=== PATIENT | female | born 2000 | race Caucasian/White ===

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

== ENCOUNTER 2020-12-24 11:49 | Outpatient (CLI) | payer OTHER ==
[2020-12-24 15:58] LABS: THYROID STIMULATING HORMONE 2.71 uIU/mL (0.34-5.60)
[2020-12-24 16:00] LABS: FREE T4 (FREE THYROXINE) 0.66 ng/dL (0.58-1.64)
== END 2020-12-24 11:50 | disposition home or self-care (01) ==
LOC: LAB.S 11:49
PROVIDERS: ATTEND Nurse Practitioner Family
DX: R63.5 Abnormal weight gain (principal); Z13.228 Encounter for screening for other metabolic disorders
CPT/HCPCS: 36415; 80053; 80061; 82306; 82607; 83036; 83540; 83721; 84439; 84443; 84466; 85025

== ENCOUNTER 2021-05-24 10:42 | Emergency (ER) | payer OTHER ==
[2021-05-24] MEDS ORDERED: LORazepam 1 MG TABLET PO STA (13:23)
--- NOTE | 2021-05-24 13:39 | ED Physician Documentation ---
History of Present Illness - Stated complaint Stated Complaint: L LEG PAIN - Chief complaint Chief Complaint: Ext Problem - History obtained from History obtained from: Patient, Family - History of Present Illness Timing: Today Pain level max: 0 Pain level now: 0 - Additonal information Additional information: 20 year old female with Easy bruising and gums bleeding after starting Namenda about 3 weeks ago. She stopped taking the medication 3 days ago. Nothing makes it better or worse. No fevers. No chills. No headache. No trauma. Mother states that she is autistic. Patient is afraid of blood draws. Review of Systems Constitutional: denies: Fever, Chills Respiratory: denies: Cough GI: denies: Vomiting, Diarrhea Skin: denies: Rash Musculoskeletal: denies: Neck pain, Back pain Neurologic: denies: Headache PD PAST MEDICAL HISTORY - Past Medical History Past Medical History: No Psych: Other Other Past Medical History: autism - Present Medications Home Medications: Ambulatory Orders Medication Instructions Recorded Confirmed Cariprazine HCl [Vraylar] 4.5 mg PO DAILY 05/24/21 05/24/21 Dextroamphetamine/Amphetamine 10 mg PO DAILY 05/24/21 05/24/21 [Adderall 10 mg Tablet] Guanfacine HCl [Intuniv] 1 mg PO BID 05/24/21 05/24/21 Memantine HCl [Namenda] 5 mg PO BID 05/24/21 05/24/21 Metformin HCl [Metformin ER 500 mg PO TIDWM 05/24/21 05/24/21 Gastric] Phentermine HCl 15 mg PO DAILY 05/24/21 05/24/21 clonazePAM [KlonoPIN] 0.5 mg PO BID PRN 05/24/21 05/24/21 - Allergies Allergies/Adverse Reactions: Allergies Allergy/AdvReac Type Severity Reaction Status Date / Time No Known Drug Allergies Allergy Verified 05/24/21 11:03 - Social History Does the pt smoke?: No Smoking Status: Never smoker - POLST Patient has POLST: No PD ED PE NORMAL - Vitals Vital signs reviewed: Yes - General General: Alert and oriented X 3, No acute distress, Well developed/nourished - HEENT HEENT: Moist mucous membranes, Pharynx benign - Neck Neck: Supple, no meningeal sign - Cardiac Cardiac: RRR, Strong equal pulses - Respiratory Respiratory: No respiratory distress, Clear bilaterally - Abdomen Abdomen: Soft, Non tender, Non distended - Derm Derm: Other (Mild bruising to the bilateral calves, posterior aspect. No swelling.) - Extremities Extremities: Normal ROM s pain - Neuro Neuro: Alert and oriented X 3 Results - Vitals Vitals: Vital Signs - 24 hr 05/24/21 05/24/21 10:54 15:03 Temperature 36.5 C Heart Rate 112 H 122 H Respiratory 16 16 Rate Blood Pressure 120/84 H 127/74 O2 Saturation 95 100 Oxygen O2 Source Room air PD MEDICAL DECISION MAKING - ED course Complexity details: re-evaluated patient, considered differential, d/w patient, d/w family, d/w ada accommodation consultant ED course: Patient would not allow us to draw her blood. We did attempt to give the patient Ativan to calm her but this did not help. Do not feel that it is safe to sedate the patient for a blood draw. This likely is related to the Namenda. They stopped this medication 2 to 3 days ago, would expect her symptoms to begin to improve. If she worsens, recommend that they return for further care. Mother is comfortable with this plan. Mother will monitor at home for signs of bleeding. Mother counseled regarding signs and symptoms for which I believe and urgent re-evaluation would be necessary. Mother with good understanding of and agreement to plan and is comfortable going home at this time This document was made in part using voice recognition software. While efforts are made to proofread this document, sound alike and grammatical errors may occur. I did discuss the case with hematology on-call, Dr. Lambert, who states that if this is drug-related it should improve on its own Departure - Departure Disposition: 01 Home, Self Care Clinical Impression: Ecchymosis, Medication side effect Condition: Good Instructions: ED Contusion Soft Tissue Follow-Up: Lisa Lucas, PARLIAMENT[employer] LIBRARIAN [Primary Care Provider] - Within 1 week Comments: As we discussed, please stop the Namenda. Please follow-up with your doctor for further care. Return if she develops further signs of bleeding such as spontaneous nosebleeds, trauma, rectal bleeding, etc. Unfortunately we were unable to draw blood today. This does make the diagnosis and treatment more challenging, but as this is likely from the Namenda and should improve with stopping of the drug. Discharge Date/Time: 05/24/21 15:05
[2021-05-24 15:05] VITALS: BP 127/74
== END 2021-05-24 15:05 | disposition home or self-care (01) ==
LOC: ED 10:42
DX: R58 Hemorrhage, not elsewhere classified (principal); T43.8X5A Adverse effect of other psychotropic drugs, initial encounter
CPT/HCPCS: 99282; 99283; J8499; 80053; 85025; 85384; 85610; 85730